=== PATIENT | female | born 1935 | race Caucasian/White ===

== ENCOUNTER 2020-09-07 15:36 | Emergency (ER) | payer OTHER ==
--- NOTE | 2020-09-07 20:53 | RAD REPORT ---
EXAM DESCRIPTION: RAD - Chest Single View - 09/07/2020 8:36 pm CLINICAL HISTORY: SOB Chest pain. COMPARISON: Extremity [facility] dated 02/25/2018No comparisons FINDINGS: Portable technique limits examination quality. The lungs are grossly clear. The heart is mildly enlarged in size with a dual lead pacer device prese nt. No displaced fractures. IMPRESSION: No acute intrathoracic process suspected.
[2020-09-07 21:07] LABS: Protime INR 1.13
[2020-09-07 21:13] LABS: Magnesium 2.6 mg/dL (1.8-2.4); NT PRO-BNP 1397 pg/mL (<450); Troponin (Emerg Dept Use Only) < 0.02 ng/mL (0.0-0.045)
[2020-09-07 22:10] LABS: Absolute Lymphocytes (CBC) 2.8 K/uL (0.7-4.9); Basophils % 0.9 % (0-1.3); Lymphocytes % 18.7 % (15.3-44.8); MPV 8.7 fL (7.6-11.3); RBC Red Blood Cell Count 2.58 M/uL (3.86-4.86)
[2020-09-07 22:20] LABS: Hematocrit 18.9 % (36.0-45.0)
[2020-09-07 22:22] LABS: ALT/SGPT 14 U/L (12-78); AST/SGOT 10 U/L (15-37); Albumin 3.2 g/dL (3.4-5.0); Alkaline Phosphatase 88 U/L (45-117); BUN Blood Urea Nitrogen 17 mg/dL (7-18); Bicarbonate 24 mmol/L (21-32); Bilirubin Direct < 0.1 mg/dL (0-0.2); Bilirubin Total 0.2 mg/dL (0.2-1.0); Ferritin 3.1 ng/mL (8-388); Glucose Level 185 mg/dL (74-106); Lipase 135 U/L (73-393); Potassium 4.4 mmol/L (3.5-5.1); Protein, Total 7.4 g/dL (6.4-8.2); Sodium Level 135 mmol/L (136-145)
[2020-09-08] MEDS ORDERED: NA CHLORIDE 0.9% 50 ML ONE (01:17)
[2020-09-08] MEDS ORDERED: FUROSEMIDE 20 MG/ 2ML VIAL ONE ×2 (03:56→06:53)
[2020-09-08] MEDS ORDERED: NA CHLORIDE 0.9% 250 ML ONE (04:12)
[2020-09-08 07:46] LABS: Hematocrit 24.4 % (36.0-45.0)
--- NOTE | 2020-09-08 08:19 | ER ---
Nurse's Notes [facility] Name: Estrada Velásquez Age: 84 yrs Sex: Female : 1935 Arrival Date: 09/07/2020 Time: 15:38 Bed 13 Private MD: Diagnosis: Rectal bleeding;Anemia, unspecified;Hemorrhoids and perianal venous thrombosis Presentation: 09/07 15:43 Chief complaint: Patient states: Bleeding since the end of June. 2 weeks ago her ll1 HGB 7.0. Dr. Martinez sent her in for evaluation of bleeding and possible blood or iron transfusion. Coronavirus screen: Client denies travel out of the [place] in the last 14 days. At this time, the client does not indicate any symptoms associated with coronavirus-19. Ebola Screen: Patient denies travel to an Ebola-affected area in the 21 days before illness onset. Initial Sepsis Screen: Does the patient meet any 2 criteria? No. Patient's initial sepsis screen is negative. Does the patient have a suspected source of infection? Yes: Other: r/o rectal bleeding. Risk Assessment: Do you want to hurt yourself or someone else? Patient reports no desire to harm self or others. Onset of symptoms was July 15, 2020. 15:43 Method Of Arrival: Wheelchair ll1 15:43 Acuity: JUSTA 3 ll1 Historical: - Allergies: 15:49 Ciprofloxacin; ll1 15:49 Tamiflu; ll1 15:49 Sulfa (Sulfonamide Antibiotics); ll1 - PMHx: 15:49 Anemia; A fib; CHF; Hypertension; ll1 - PSHx: 15:49 pacemaker; ll1 - Immunization history:: Flu vaccine is not up to date. - Social history:: Smoking status: Patient denies any tobacco usage or history of. Screenin:40 Abuse screen: Denies threats or abuse. Nutritional screening: No deficits noted. jb4 Tuberculosis screening: No symptoms or risk factors identified. Fall Risk None identified. Assessment: 19:40 General: Appears in no apparent distress. comfortable, Behavior is calm, cooperative, jb4 appropriate for age. Pain: Denies pain. Neuro: Level of Consciousness is awake, alert, obeys commands, Oriented to person, place, time, situation. Cardiovascular: Patient's skin is warm and dry. Respiratory: Airway is patent Respiratory effort is even, unlabored, Respiratory pattern is regular, symmetrical. GI: No signs and/or symptoms were reported involving the gastrointestinal system. : No signs and/or symptoms were reported regarding the genitourinary system. EENT: No signs and/or symptoms were reported regarding the EENT system. Derm: Skin is intact, Skin is dry, Skin is pale, Skin temperature is warm. Musculoskeletal: Circulation, motion, and sensation intact. Range of motion: intact in all extremities. 21:00 Reassessment: Patient appears in no apparent distress at this time. Patient and/or jb4 family updated on plan of care and expected duration. Pain level reassessed. Patient is alert, oriented x 3, equal unlabored respirations, skin warm/dry/pink. 22:00 Reassessment: Patient appears in no apparent distress at this time. Patient and/or jb4 family updated on plan of care and expected duration. Pain level reassessed. Patient is alert, oriented x 3, equal unlabored respirations, skin warm/dry/pink. 23:00 Reassessment: Patient appears in no apparent distress at this time. Patient and/or jb4 family updated on plan of care and expected duration. Pain level reassessed. Patient is alert, oriented x 3, equal unlabored respirations, skin warm/dry/pink. 09/08 00:00 Reassessment: Patient appears in no apparent distress at this time. Patient and/or jb4 family updated on plan of care and expected duration. Pain level reassessed. Patient is alert, oriented x 3, equal unlabored respirations, skin warm/dry/pink. 01:00 Reassessment: Patient appears in no apparent distress at this time. Patient and/or jb4 family updated on plan of care and expected duration. Pain level reassessed. Patient is alert, oriented x 3, equal unlabored respirations, skin warm/dry/pink. 01:30 Reassessment: Blood transfusion started. jb4 02:00 Reassessment: Patient appears in no apparent distress at this time. Patient and/or jb4 family updated on plan of care and expected duration. Pain level reassessed. Patient is alert, oriented x 3, equal unlabored respirations, skin warm/dry/pink. 03:15 Reassessment: Patient appears in no apparent distress at this time. Patient and/or jb4 family updated on plan of care and expected duration. Pain level reassessed. Patient is alert, oriented x 3, equal unlabored respirations, skin warm/dry/pink. Lungs are CTA EDILBERTO. 07:00 Reassessment: RECD REPORT FROM [facility]. 84YO WF SENT FOR ANEMIA AFTER HEMORRHOID bp SURGERY. 2 UNIT PRBC TRANSFUSED, REPEAT H/H DUE AT 0730. PT DECLINING TRANSFER. 08:29 Reassessment: PT D/C HOME AMBULATORY WITH FAMILY, DX WITH ANEMIA AND RECTAL BLEEDING. bp STATES S/S IMPROVED. Vital Signs: 09/07 15:43 BP 136 / 47; Pulse 71; Resp 17; Temp 98.1; Pulse Ox 100% ; Weight 71.21 kg; Height 5 ll1 ft. 5 in. (165.10 cm); Pain 3/10; 21:00 BP 126 / 55; Pulse 98; Resp 16; Pulse Ox 100% on R/A; jb4 22:00 BP 102 / 42; Pulse 68; Resp 16; Pulse Ox 99% on R/A; jb4 22:45 BP 144 / 44; Pulse 68; Resp 17; Pulse Ox 100% on R/A; jb4 23:30 BP 129 / 47; Pulse 68; Resp 17; Pulse Ox 100% on R/A; jb4 09/08 00:15 BP 132 / 46; Pulse 68; Resp 15; Pulse Ox 100% on R/A; jb4 01:00 BP 132 / 46; Pulse 68; Resp 16; Pulse Ox 99% on R/A; jb4 03:30 BP 135 / 60; Pulse 67; Resp 17; Temp 97.4(TE); Pulse Ox 100% on R/A; jb4 04:30 BP 132 / 44; Pulse 92; Resp 16; Temp 97.8(TE); Pulse Ox 99% ; sf 05:20 BP 160 / 65; Pulse 77; Resp 16; Temp 97.9(TE); Pulse Ox 99% ; sf 07:00 BP 120 / 48; Pulse 70; Resp 23; Temp 98.7; Pulse Ox 100% ; bp 08:29 BP 147 / 54; Pulse 75; Resp 23; Temp 98.5; Pulse Ox 100% ; bp 09/07 15:43 Body Mass Index 26.13 (71.21 kg, 165.10 cm) ll1 Vitals: 05:20 Cardiac Rhythm Assessment Sinus rhythm. sf ED Course: 09/07 15:38 Patient arrived in ED. as 15:47 Triage completed. ll1 15:49 Arm band placed on. ll1 19:09 Castro Pan MD is Attending Physician. tw4 20:28 Dami Nielsen, RN is Primary Nurse. jb4 20:36 XRAY Chest (1 view) In Process Unspecified. EDMS 21:00 Initial lab(s) drawn, by me, sent to lab. Inserted saline lock: 20 gauge in right jb4 forearm, using aseptic technique. Blood collected. 21:17 Placed in gown. Bed in low position. Call light in reach. Side rails up X2. Warm jp3 blanket given. Verbal reassurance given. hall monitor on. Pulse ox on. NIBP on. 21:17 EKG done, by ED staff, reviewed by Castro Pan MD. Patient maintains SpO2 jp3 saturation greater than 95% on room air. 22:20 Notified ED physician of a critical lab result(s). HGB of 5.9 [address] 18[address]9 [address] Pan bb notified. 09/08 00:40 initiated a transfer with Aleta Herrera from [facility]. mw2 01:54 Aleta Herrera called from [facility] to let us know that the only bed that they have mw2 available is [facility] in the [place]. She wanted us to speak to the patient to see if they would be comfortable going to that location. 01:58 Asked the patient if she would be comfortable going to [facility]. She mw2 stated " that is an awful far drive, and its far from my house and my family. Can I think about it and let you know.". 02:09 Aleta Herrera called back from [facility] to get an update on if the mw2 patient is okay with going to the [facility]. I told Aleta was the patient said and she said " not a problem just give me a call when she has made a decision.". 02:[address] [facility] called to see if the patient is wanting mw2 to go to the [place]. I asked the patient if she wants to go to the [place] she stated " no I think I'm gonna decline." I passed the information to Aleta and she canceled the transfer. 03:26 Type And Screen Sent. sf 06:09 Primary Nurse role handed off by Dami Nielsen, RN mw2 07:03 Taiwo Alcantara, RN is Primary Nurse. bp 07:46 Attending Physician role handed off by Castro Pan MD kdr 07:46 Ganesh Dumont MD is Attending Physician. kdr 08:30 No provider procedures requiring assistance completed. IV discontinued, intact, bp bleeding controlled, No redness/swelling at site. Pressure dressing applied. Administered Medications: 03:43 Drug: Lasix 20 mg Route: IVP; Site: right forearm; sf 08:31 Follow up: Response: No adverse reaction bp 06:30 Drug: Lasix 20 mg Route: IVP; Site: right forearm; bp 08:31 Follow up: Response: No adverse reaction bp Medication: 04:20 Blood products: PRBCs X 1 unit given. sf Outcome: 08:19 Discharge ordered by . kdr 08:30 Discharged to home ambulatory, with family. bp 08:30 Condition: stable 08:30 Discharge instructions given to patient, Instructed on discharge instructions, follow up and referral plans. Demonstrated understanding of instructions, follow-up care. 08:58 Patient left the ED. bp Signatures: Dispatcher [employer] EDMS Ganesh Dumont MD MD kdr Jackelyn Willis as Lenoer Beltran, RN RN bb Dami Nielsen, RN BE jb4 Taiwo Alcantara, RN RN Castro Pan MD MD tw4 Starr Quintero mw2 Mitchell Javier 3 Junaid Schuler RN RN ll1 Wagner Buchanan RN RN sf Corrections: (The following items were deleted from the chart) 09/07 15:49 15:49 Immunization history: Flu vaccine is up to date. ll1 ll1 09/08 01:53 00:40 General: Appears [place]
--- NOTE | 2020-09-08 08:19 | EDPHYS ---
Physician Documentation [facility] Name: Estrada Velásquez Age: 84 yrs Sex: Female : 1935 Arrival Date: 09/07/2020 Time: 15:38 Bed 13 Private MD: ED Physician Ganesh Dumont HPI: 09/08 02:34 This 84 yrs old Female presents to ER via Wheelchair with complaints of needs tw4 transfusion. 02:34 The patient presents with dizziness, generalized weakness. Onset: The symptoms/episode tw4 began/occurred today. Onset: The symptoms/episode began/occurred and became worse 2 week(s) ago. Context: occurred at home. Modifying factors: The symptoms are alleviated by nothing, the symptoms are aggravated by nothing. Associated signs and symptoms: The patient has no apparent associated signs or symptoms. Patient's baseline: Neuro: alert and fully oriented, Motor: no deficits. The patient has not experienced similar symptoms in the past. Historical: - Allergies: 09/07 15:49 Ciprofloxacin; ll1 15:49 Tamiflu; ll1 15:49 Sulfa (Sulfonamide Antibiotics); ll1 - PMHx: 15:49 Anemia; A fib; CHF; Hypertension; ll1 - PSHx: 15:49 pacemaker; ll1 - Immunization history:: Flu vaccine is not up to date. - Social history:: Smoking status: Patient denies any tobacco usage or history of. ROS: 09/08 02:34 Constitutional: Negative for fever, chills, and weight loss, Eyes: Negative for injury, tw4 pain, redness, and discharge, Cardiovascular: Negative for chest pain, palpitations, and edema, Respiratory: Negative for shortness of breath, cough, wheezing, and pleuritic chest pain, Abdomen/GI: Negative for abdominal pain, nausea, vomiting, diarrhea, and constipation, Back: Negative for injury and pain, MS/Extremity: Negative for injury and deformity, Skin: Negative for injury, rash, and discoloration. Neuro: Positive for weakness, Negative for altered mental status, dizziness, gait disturbance, headache, hearing loss, numbness, seizure activity, speech changes, syncope, near syncope, tinnitus, tremor, visual changes. Exam: 02:34 Constitutional: This is a well developed, well nourished patient who is awake, alert, tw4 and in no acute distress. Head/Face: Normocephalic, atraumatic. 02:34 Cardiovascular: Regular rate and rhythm with a normal S1 and S2. No gallops, murmurs, or rubs. Normal PMI, no JVD. No pulse deficits. Respiratory: Lungs have equal breath sounds bilaterally, clear to auscultation and percussion. No rales, rhonchi or wheezes noted. No increased work of breathing, no retractions or nasal flaring. Abdomen/GI: Soft, non-tender, with normal bowel sounds. No distension or tympany. No guarding or rebound. No evidence of tenderness throughout. Back: No spinal tenderness. No costovertebral tenderness. Full range of motion. MS/ Extremity: Pulses equal, no cyanosis. Neurovascular intact. Full, normal range of motion. Neuro: Awake and alert, GCS 15, oriented to person, place, time, and situation. Cranial nerves II-XII grossly intact. Motor strength 5/5 in all extremities. Sensory grossly intact. Cerebellar exam normal. Normal gait. 02:34 Eyes: Exam is negative for Periorbital structures: appear normal, Pupils: no acute changes, Extraocular movements: intact throughout, Conjunctiva: pale, Corneas: are normal, Sclera: Vital Signs: 09/07 15:43 BP 136 / 47; Pulse 71; Resp 17; Temp 98.1; Pulse Ox 100% ; Weight 71.21 kg; Height 5 ll1 ft. 5 in. (165.10 cm); Pain 3/10; 21:00 BP 126 / 55; Pulse 98; Resp 16; Pulse Ox 100% on R/A; jb4 22:00 BP 102 / 42; Pulse 68; Resp 16; Pulse Ox 99% on R/A; jb4 22:45 BP 144 / 44; Pulse 68; Resp 17; Pulse Ox 100% on R/A; jb4 23:30 BP 129 / 47; Pulse 68; Resp 17; Pulse Ox 100% on R/A; jb4 09/08 00:15 BP 132 / 46; Pulse 68; Resp 15; Pulse Ox 100% on R/A; jb4 01:00 BP 132 / 46; Pulse 68; Resp 16; Pulse Ox 99% on R/A; jb4 03:30 BP 135 / 60; Pulse 67; Resp 17; Temp 97.4(TE); Pulse Ox 100% on R/A; jb4 04:30 BP 132 / 44; Pulse 92; Resp 16; Temp 97.8(TE); Pulse Ox 99% ; sf 05:20 BP 160 / 65; Pulse 77; Resp 16; Temp 97.9(TE); Pulse Ox 99% ; sf 07:00 BP 120 / 48; Pulse 70; Resp 23; Temp 98.7; Pulse Ox 100% ; bp 08:29 BP 147 / 54; Pulse 75; Resp 23; Temp 98.5; Pulse Ox 100% ; bp 09/07 15:43 Body Mass Index 26.13 (71.21 kg, 165.10 cm) ll1 MDM: 09/07 19:41 Patient medically screened. tw4 09/08 02:34 Differential diagnosis: cardiac arrhythmia, CVA, hyperventilation, hypovolemia, tw4 idiopathic dizziness, near-syncope, TIA, vertigo. Data reviewed: vital signs, nurses notes. Data interpreted: Pulse oximetry: Interpretation: normal. Counseling: I had a detailed discussion with the patient and/or guardian regarding: the historical points, exam findings, and any diagnostic results supporting the discharge/admit diagnosis. 09/07 19:10 Order name: Basic Metabolic Panel; Complete Time: 08:15 tw4 09/07 19:10 Order name: CBC with Diff; Complete Time: 08:15 tw4 09/07 19:10 Order name: Hepatic Function; Complete Time: 08:15 tw09/07 19:10 Order name: Lipase; Complete Time: 08:15 09/07 19:10 Order name: Iron Level; Complete Time: 08:15 tw09/07 20:01 Order name: Magnesium; Complete Time: 21:35 tw09/07 20:01 Order name: NT PRO-BNP; Complete Time: 21:35 tw09/07 20:01 Order name: PT-INR; Complete Time: 21:35 tw4 09/07 20:01 Order name: Troponin (emerg Dept Use Only); Complete Time: 21:35 tw09/07 22:28 Order name: Type And Screen jb4 09/07 22:29 Order name: Type and Screen EDMS 09/07 22:39 Order name: Packed RBC Leukored EDMS 09/08 00:04 Order name: ABO/RH no charge; Complete Time: 08:15 EDMS 09/07 19:10 Order name: IV Saline Lock; Complete Time: 20:28 tw4 09/07 19:10 Order name: Labs collected and sent; Complete Time: 20:28 tw4 09/07 20:01 Order name: XRAY Chest (1 view); Complete Time: 21:35 tw4 09/07 20:01 Order name: EKG; Complete Time: 20:02 tw4 09/07 20:01 Order name: Cardiac monitoring; Complete Time: 20:28 tw4 09/07 20:01 Order name: EKG - Nurse/Tech; Complete Time: 21:33 tw4 09/07 20:01 Order name: O2 Per Protocol; Complete Time: 20:28 tw4 09/07 20:01 Order name: O2 Sat Monitoring; Complete Time: 20:28 tw4 09/07 22:24 Order name: Transfuse; Complete Time: 07:47 tw4 09/07 22:24 Order name: Transfer - Initiate; Complete Time: 23:32 tw4 09/08 02:04 Order name: SARS-COV-2 RT PCR; Complete Time: 08:15 EDMS 09/08 07:24 Order name: Hemoglobin; Complete Time: 08:15 bp 09/08 07:24 Order name: Hematocrit; Complete Time: 08:15 bp EC:36 Rhythm is regular. QRS [place] is Normal. AR interval is normal. QRS interval is normal. tw4 QT interval is normal. No Q waves. T waves are Normal. No ST changes noted. Clinical impression: Normal ECG. Interpreted by me. Reviewed by me. Administered Medications: 03:43 Drug: Lasix 20 mg Route: IVP; Site: right forearm; sf 08:31 Follow up: Response: No adverse reaction bp 06:30 Drug: Lasix 20 mg Route: IVP; Site: right forearm; bp 08:31 Follow up: Response: No adverse reaction bp Disposition: 09/08/20 08:19 Discharged to Home. Impression: Rectal bleeding, Anemia, unspecified, Hemorrhoids and perianal venous thrombosis. - Condition is Stable. - Discharge Instructions: Anemia, Nonspecific, Blood Transfusion, Adult, Rectal Bleeding, [id number], Blood Transfusion, Care After, [id number]. - Medication Reconciliation Form, Thank You Letter form. - Follow up: Private Physician; When: 2 - 3 days; Reason: If symptoms return, Further diagnostic work-up, Recheck today's complaints, Continuance of care, Re-evaluation by your physician. - Problem is an acute exacerbation. - Symptoms have improved. Signatures: Dispatcher [employer] [facility] Ganesh Dumont MD MD kdr Dami Nielsen RN RN jb4 Taiwo Alcantara RN RN bp Castro Pan MD MD tw4 Junaid Schuler RN RN 1 Wagner Buchanan RN RN sf Corrections: (The following items were deleted from the chart) 09/07 15:49 15:49 Immunization history: Flu vaccine is up to date. [place] [id number] 09/08 00:44 09/07 23:34 CORONAVIRUS+MRMONAE.MADIHA ordered. [facility] 09/08 08:58 08:19 09/08/2020 08:19 Discharged to Home. Impression: Rectal bleeding; Anemia, bp unspecified; Hemorrhoids and perianal venous thrombosis. Condition is Stable. Forms are Medication Reconciliation Form, Thank You Letter, Antibiotic Education, Prescription Opioid Use. Follow up: Private Physician; When: 2 - 3 days; Reason: If symptoms return, Further diagnostic work-up, Recheck today's complaints, Continuance of care, Re-evaluation by your physician. Problem is an acute exacerbation. Symptoms have improved. kdr
[2020-09-08 09:28] VITALS: O2SAT 100
[2020-09-08 09:29] VITALS: BP 147/54; TEMP 98.5
== END 2020-09-08 08:58 | disposition home or self-care (01) ==
LOC: EDSEX 15:36 → ER 15:36
DX: K62.5 Hemorrhage of anus and rectum (principal); K64.9 Unspecified hemorrhoids; K64.5 Perianal venous thrombosis; D64.9 Anemia, unspecified; Z88.1 Allergy status to other antibiotic agents; Z88.2 Allergy status to sulfonamides; Z95.0 Presence of cardiac pacemaker; Z20.822 Contact with and (suspected) exposure to COVID-19
CPT/HCPCS: 85025; 80048; 36415; 86900; 83735; 86850; 85610; 86901; 80076; 85018; 85014; 84484; 82728; 83690; 83880; 71045; 36430; 96374; 99285; U0003; J1940 ×2; P9016 ×2; J7050